=== PATIENT | female | born 1985 | race African-American/Black ===

== ENCOUNTER 2016-11-11 03:55 | Emergency (ER) | payer MEDICAID ==
[~2016-11-11] VITALS: Ht 182.9 cm; Wt 63.5 kg
[2016-11-11 06:04] VITALS: BP 113/69
== END 2016-11-11 06:05 | disposition home or self-care (01) ==
LOC: ER 03:57
DX: J06.9 Acute upper respiratory infection, unspecified (principal); H92.01 Otalgia, right ear

== ENCOUNTER 2017-01-07 11:32 | Emergency (ER) | payer MEDICAID ==
[~2017-01-07] VITALS: Ht 182.9 cm; Wt 59.0 kg
[2017-01-07] MEDS ORDERED: SODIUM CHLORIDE 0.9% 1,000 ML IVB ONE (12:16)
[2017-01-07] MEDS ORDERED: ONDANSETRON HCL 4 MG/2 ML VIAL IV ONE (12:30)
[2017-01-07] MEDS ORDERED: MORPHINE SULFATE 4 MG/ML SYRG IV ONE (12:30)
[2017-01-07 13:17] LABS: Basophils # (auto) 0 uL; Eosinophils # (auto) 0 uL; Eosinophils % (auto) 0.1 % (0.0-7.0); Hematocrit 35.1 % (36.0-46.0); Hemoglobin 11.9 g/dL (12.2-16.2); Lymphocytes # (auto) 0.7 uL; Lymphocytes % (auto) 8.2 % (10.0-50.0); Mean Corpuscular Hemoglobin 31.8 pg (28.0-32.0); Mean Corpuscular Hgb Conc. 33.8 g/dL (32.0-36.0); Mean Corpuscular Volume 94.2 fL (80.0-100.0); Mean Platelet Volume 8.2 fL (7.4-10.4); Monocytes # (auto) 0.4 uL; Monocytes % (auto) 4.2 % (0.0-12.0); Neutrophils # (auto) 7.5 uL; Neutrophils % (auto) 87.5 % (37.0-80.0); Platelet Count (auto) 270 10^3/uL (140-450); White Blood Cell 8.5 10^3/uL (4.4-10.8)
[2017-01-07 13:44] LABS: Albumin 4.3 g/dL (3.4-5.0); BUN/Creatinine Ratio 6.8; Bilirubin, Total 1.1 mg/dL (0.2-1.0); Calcium 9.3 mg/dL (8.5-10.1); Potassium 3.6 mmol/L (3.5-5.1); Total Protein 8.5 g/dL (6.4-8.2)
[2017-01-07 15:02] LABS: Urine Bilirubin Negative (Negative); Urine Color Yellow (Yellow); Urine Glucose Normal (Normal); Urine Nitrite Negative (Negative); Urine RBC 7 /hpf (0 - 4); Urine Squamous Epithelial Cell FEW /hpf (<5); Urine Urobilinogen Normal (Negative); Urine pH 7.5 (5.0-8.0)
[2017-01-07 15:04] LABS: Urine Blood 2+ /uL (Negative); Urine Ketone 2+ (Negative)
[2017-01-07 15:49] VITALS: BP 117/74
== END 2017-01-07 16:33 | disposition home or self-care (01) ==
LOC: ER 11:32
DX: O20.0 Threatened abortion (principal); Z3A.01 Less than 8 weeks gestation of pregnancy; Z98.51 Tubal ligation status
CPT/HCPCS: 36415; 76801; 80053; 81001; 84702; 85025; 96361; 96374; 96375; 99285; J2270; J2405

== ENCOUNTER 2021-04-30 19:38 | Emergency (ER) | payer BC, MEDICAID ==
[~2021-04-30] VITALS: Ht 182.9 cm; Wt 64.4 kg
[2021-04-30 20:24] LABS: Basophils # (auto) 0.1 10 ^3/uL (0-0.2); Eosinophils # (auto) 0.2 10 ^3/uL (0-0.8); Eosinophils % (auto) 3.9 % (0.0-7.0); Hematocrit 33.1 % (36.0-46.0); Hemoglobin 11.7 g/dL (12.2-16.2); Lymphocytes # (auto) 2.2 10 ^3/uL (0.4-5.4); Lymphocytes % (auto) 36.7 % (10.0-50.0); Mean Corpuscular Hemoglobin 33.3 pg (28.0-32.0); Mean Corpuscular Hgb Conc. 35.2 g/dL (32.0-36.0); Mean Corpuscular Volume 94.4 fL (80.0-100.0); Monocytes # (auto) 0.4 10 ^3/uL (0-1.3); Monocytes % (auto) 7.1 % (0.0-12.0); Neutrophils # (auto) 3.1 10 ^3/uL (1.6-8.6); Neutrophils % (auto) 51.3 % (37.0-80.0); Platelet Count (auto) 269 10^3/uL (140-450); Red Blood Cells 3.51 10^6/uL (4.0-5.20); Red Cell Distribution Width 11.9 % (11.8-14.3)
[2021-04-30 20:27] LABS: Urine Bacteria NONE SEEN /hpf (None Seen); Urine Blood Negative /uL (Negative); Urine Mucus FEW (None Seen); Urine Specific Gravity 1.022 (1.001-1.035); Urine WBC 1 /hpf (0 - 5)
[2021-04-30 20:43] LABS: Calcium 9.1 mg/dL (8.5-10.1); Potassium 3.9 mmol/L (3.5-5.1)
[2021-04-30 20:45] LABS: BUN/Creatinine Ratio 7.4
[2021-04-30 20:48] LABS: Bilirubin, Total 0.6 mg/dL (0.2-1.0); Total Protein 8.4 g/dL (6.4-8.2)
[2021-04-30 23:06] VITALS: BP 111/69
== END 2021-04-30 23:12 | disposition home or self-care (01) ==
LOC: ER 19:38
DX: O26.891 Other specified pregnancy related conditions, first trimester (principal); R10.30 Lower abdominal pain, unspecified; Z90.49 Acquired absence of other specified parts of digestive tract; Z3A.01 Less than 8 weeks gestation of pregnancy
CPT/HCPCS: 36415; 76801; 76817; 80053; 81001; 84702; 85025; 85049